=== PATIENT | male | born 1980 | race Caucasian/White ===

== ENCOUNTER 2020-06-07 19:00 | Emergency (ER) | payer BC, OTHER ==
[2020-06-07 20:02] LABS: CHLORIDE,CL 105 mmol/L (98-107); SODIUM,NA 139 mmol/L (136-145)
--- NOTE | 2020-06-07 20:17 | EDM.PDOC ---
ED HPI GENERAL MEDICAL PROBLEM - General Chief Complaint: Respiratory Problem Stated Complaint: cough, sinus pressure Time Seen by Provider: 06/07/20 19:29 Source of Information: Reports: Patient History Limitations: Reports: No Limitations - History of Present Illness INITIAL COMMENTS - FREE TEXT/NARRATIVE: Patient complains of sore throat that started two evenings ago. 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 Sore throat worsened yesterday. Also sinus pressure/frontal headache, mild cough (non-productive) No specific fevers/chills. No known exposure to Covid or other illness. Mild bilateral ear discomfort. No SOB/wheezing. Denies other pain complaints. Eating well. No GI/ changes. No rashes or neuro changes. Unable to go to work last night. Tried to get appointment at local clinic to be seen today but none available. - Related Data Allergies Allergy/AdvReac Type Severity Reaction Status Date / Time No Known Allergies Allergy Verified 06/07/20 20:00 Past Medical History - Past Health History Medical/Surgical History: Denies Medical/Surgical History ED ROS GENERAL - Review of Systems Review Of Systems: Comprehensive ROS is negative, except as noted in HPI. ED EXAM, GENERAL - Physical Exam Exam: See Below Exam Limited By: No Limitations General Appearance: Alert, WD/WN, No Apparent Distress Eye Exam: Bilateral Eye: EOMI, PERRL Ears: Normal External Exam, Normal Canal, Hearing Grossly Normal, Normal TMs Nose: Normal Inspection, Other (patient blew nose/clear mucus). No: Nasal Deformity, Nasal Swelling Throat/Mouth: Normal Inspection, Normal Lips, Normal Teeth, Normal Gums, Normal Oropharynx, Normal Voice, No Airway Compromise Head: Atraumatic, Normocephalic Neck: Normal Inspection, Supple, Non-Tender, Full Range of Motion. No: Lymphadenopathy (L), Lymphadenopathy (R) Respiratory/Chest: No Respiratory Distress, Lungs Clear, Normal Breath Sounds, No Accessory Muscle Use, Chest Non-Tender Cardiovascular: Regular Rate, Rhythm, No Murmur GI/Abdominal: Soft, Non-Tender (Male) Exam: Deferred Rectal (Males) Exam: Deferred Back Exam: No: Muscle Spasm Extremities: Normal Inspection, Normal Capillary Refill Neurological: Alert, Oriented, Normal Cognition, Normal Gait, No Motor/Sensory Deficits Psychiatric: Normal Affect, Normal Mood Skin Exam: Warm, Dry, Intact, Normal Color Course - Orders/Labs/Meds Orders: Active Orders 24 hr Category Date Time Status CORONAVIRUS COVID-19 PCR PHL Stat Lab 06/07/20 19:15 Ordered CULTURE STREP A CONFIRMATION [] Stat Lab 06/07/20 20:01 Results STREP SCRN A RAPID W CULT CONF [] Stat Lab 06/07/20 20:01 Received Labs: Laboratory Tests 06/07/20 06/07/20 Range/Units 19:40 19:40 WBC 9.7 (4.0-10.2) K/uL RBC 5.31 (4.33-5.41) M/uL Hgb 15.5 (13.1-16.8) g/dL Hct 46.2 (39.0-49.0) % MCV 87.0 (84.0-98.0) fL MCH 29.2 (28.2-33.3) pg MCHC 33.5 (31.7-36.0) g/dL RDW 13.0 (11.2-14.1) % Plt Count 210 (150-350) K/uL Neut % (Auto) 78.6 (45.0-80.0) % Lymph % (Auto) 9.2 L (10.0-50.0) % [place] % (Auto) 9.3 (2.0-14.0) % Eos % (Auto) 2.7 (0.0-5.0) % Baso % (Auto) 0.2 (0.0-2.0) % Neut # (Auto) 7.60 H (1.40-7.00) K/uL Lymph # (Auto) 0.89 (0.50-3.50) K/uL [place] # (Auto) 0.90 (0.00-1.00) K/uL Eos # (Auto) 0.26 (0.00-0.50) K/uL Baso # (Auto) 0.02 (0.00-0.20) K/uL Sodium 139 (136-145) mmol/L Potassium 4.5 (3.5-5.1) mmol/L Chloride 105 (98-107) mmol/L Carbon Dioxide 29.3 (21.0-32.0) mmol/L BUN 14 (7-18) mg/dL Creatinine 1.14 (0.51-1.17) mg/dL Est Cr Clr Drug Dosing TNP Estimated GFR (MDRD) > 60 mL/min Glucose 92 (74-106) mg/dL Calcium 8.8 (8.5-10.1) mg/dL Total Bilirubin 0.8 (0.2-1.0) mg/dL AST 20 (15-37) U/L ALT 27 (12-78) U/L Alkaline Phosphatase 85 (46-116) IU/L Total Protein 7.8 (6.4-8.2) g/dL Albumin 3.8 (3.4-5.0) g/dL - Re-Assessments/Exams Free Text/Narrative Re-Assessment/Exam: 06/07/20 20:22 CBC/Chem/rapid strep unremarkable. Covid testing ordered and will be sent out tomorrow. No further intervention indicated at this time. [employer] work note given that will keep patient off work for rest of week while Covid testing pending. Precautions reviewed. To follow up as needed if he has worsening problems or if things do not improve within reasonable amount of time. Departure - Departure Time of Disposition: 20:18 Disposition: Home, Self-Care 01 Condition: Good Clinical Impression: Respiratory tract infection - Discharge Information *PRESCRIPTION DRUG MONITORING PROGRAM REVIEWED*: Not Applicable *COPY OF PRESCRIPTION DRUG MONITORING REPORT IN PATIENT DC: Not Applicable Instructions: Upper Respiratory Infection, Adult, [id number] Referrals: PCP,None [Primary Care Provider] - Forms: ED Department Discharge Additional Instructions: Observe for changes. Rest and stay hydrated. Tylenol or ibuprofen for pain. Covid results will hopefully be available Friday. Return for recheck if you have sudden worsening symptoms. Follow up as needed otherwise/if symptoms do not improve on own over the next 7-10 days. - My Orders Last 24 Hours: My Active Orders 06/07/20 19:15 CORONAVIRUS COVID-19 PCR PHL Stat 06/07/20 20:01 CULTURE STREP A CONFIRMATION [RM] Stat STREP SCRN A RAPID W CULT CONF [RM] Stat - Assessment/Plan Last 24 Hours: My Active Orders 06/07/20 19:15 CORONAVIRUS COVID-19 PCR PHL Stat 06/07/20 20:01 CULTURE STREP A CONFIRMATION [RM] Stat STREP SCRN A RAPID W CULT CONF [] Stat
== END 2020-06-07 20:30 | disposition home or self-care (01) ==
LOC: LL.ED 19:00
DX: J98.8 Other specified respiratory disorders (principal); Z20.828 Contact with and (suspected) exposure to other viral communicable diseases
CPT/HCPCS: 36415; 80053; 85025; 87081; 87430; 99283; U0002